=== PATIENT | male | born 1975 | race African-American/Black ===

== ENCOUNTER → 2018-03-04 | Outpatient (REF) | LOC: M SMT 11:20 | DX: Z00.00 Encounter for general adult medical examination without abnormal findings (principal) ==

== ENCOUNTER 2018-10-05 07:22 | Day surgery (SDC) | payer OTHER ==
[~2018-10-05] VITALS: Ht 172.7 cm; Wt 95.3 kg
[~2018-10-05 07:22] MED LIST: CYMB1CAP5 PO; LIDOCAINE 2% INJ 100 MG/5 ML SDV (FOR ANES.) As Ordered ONE; LORA-674 PO; NS 1,000 ML IV ONE; PROPOFOL 200 MG/20 ML VIAL As Ordered ONE
[2018-10-05] MEDS ORDERED: PROPOFOL 200 MG/20 ML VIAL As Ordered ONE (08:03)
--- NOTE | 2018-10-05 08:19 | ROOR ---
Patient Name: Jesus Ramey Procedure Date: 10/05/2018 7:57 AM Date of : 1975 Age: 43 Room: [facility] Gender: Male Note Status: Finalized Procedure: Total Colonoscopy to Cecum Indications: Colon cancer screening in patient at increased risk: Family history of 1st-degree relative with colon polyps Providers: Jose Thurston MD Referring MD: DEONDRE MENDOSA MD Requesting Provider: Medicines: Monitored Anesthesia Care Complications: No immediate complications. Procedure: Pre-Anesthesia Assessment: - The heart rate, respiratory rate, oxygen saturations, blood pressure, adequacy of pulmonary ventilation, and response to care were monitored throughout the procedure. The Colonoscope was introduced through the anus and advanced to the cecum, identified by appendiceal orifice and ileocecal valve. The colonoscopy was performed without difficulty. The patient tolerated the procedure well. The quality of the bowel preparation was excellent. Findings: The perianal and digital rectal examinations were normal. Non-bleeding internal hemorrhoids were found during retroflexion. The hemorrhoids were small and Grade I (internal hemorrhoids that do not prolapse). Multiple small and large-mouthed diverticula were found in the recto-sigmoid colon, sigmoid colon and descending colon. The exam was otherwise without abnormality on direct and retroflexion views. Impression: - Non-bleeding internal hemorrhoids. - Diverticulosis in the recto-sigmoid colon, in the sigmoid colon and in the descending colon. - The examination was otherwise normal on direct and retroflexion views. - No specimens collected. - The exam was otherwise normal to the cecum. Recommendation: - Patient has a contact number available for emergencies. The signs and symptoms of potential delayed complications were discussed with the patient. Return to normal activities tomorrow. Written discharge instructions were provided to the patient. - High fiber diet. - Discharge patient to home. - Continue present medications. - Repeat colonoscopy in 5 years for screening purposes. - Return to referring physician. - The findings and recommendations were discussed with the patient's family. Jose Thurston MD Jose Thurston MD 10/05/2018 8:19:34 AM Electronically signed by Jose Thurston MD Number of Addenda: 0 Note Initiated On: 10/05/2018 7:57 AM Estimated Blood Loss: Estimated blood loss: none.
[2018-10-05 08:35] VITALS: BP 160/89
== END 2018-10-05 08:43 | disposition home or self-care (01) ==
LOC: M OPP 07:22
PROVIDERS: ATTEND Internal Medicine Gastroenterology
DX: Z12.11 Encounter for screening for malignant neoplasm of colon (principal); Z83.71 Family history of colonic polyps; K64.0 First degree hemorrhoids; K57.30 Diverticulosis of large intestine without perforation or abscess without bleeding; G47.30 Sleep apnea, unspecified; F17.210 Nicotine dependence, cigarettes, uncomplicated; Z79.899 Other long term (current) drug therapy; Z88.8 Allergy status to other drugs, medicaments and biological substances